=== PATIENT | male | born 1960 | race Caucasian/White ===

== ENCOUNTER 2021-10-24 09:15 | Observation (INO) ==
[~2021-10-24 09:15] MED LIST: Buffered Lidocaine 1% SYRIN 1 ml INTRADERM ONE; Lactated Ringers 1000 ml BAG 1,000 ML IV SCH
[2021-10-24] MEDS ORDERED: ceFAZolin 2 GM in NS PREMIX 2 GM/100 ML BAG IVPB ONE (09:58)
[2021-10-24] MEDS ORDERED: Midazolam 5 mg/5 ml VIAL 1 mg/ml 5 ml VIAL (5 mg) ONE (10:59)
[2021-10-24] MEDS ORDERED: ceFAZolin VIAL 1 GM in NS 0.9% 50 ML 50 ML IVPB ONE (11:00)
[2021-10-24] MEDS ORDERED: Ketamine HCL 50 mg/ml 10 ml VIAL (500 MG) ONE (11:33)
[2021-10-24] MEDS ORDERED: Phenylephrine 40 mcg/mL 10mL (400mcg) SYRINGE ONE (11:46)
[2021-10-24] MEDS ORDERED: diPHENhydraMINE IV 50 MG/ML 1 ml VIAL (BENADRYL) IV PRN (11:56)
[2021-10-24] MEDS ORDERED: Lactulose 30 ml UDC PO PRN (11:56)
[2021-10-24] MEDS ORDERED: Ondansetron 4 mg VIAL 2 MG/ML 2 ml VIAL IV PRN ×2 (11:56→12:26)
[2021-10-24] MEDS ORDERED: diPHENhydraMINE 25 mg TAB PO PRN (11:56)
[2021-10-24] MEDS ORDERED: Magnesium Hydroxide LIQ 30 ML UDC PO PRN (11:56)
[2021-10-24] MEDS ORDERED: Morphine 2 MG/ML SYRINGE IV PRN (12:02)
[2021-10-24] MEDS ORDERED: Naloxone 0.4 mg VIAL 0.4 mg/ml 1 ml VIAL IV PRN (12:26)
[2021-10-24] MEDS ORDERED: HYDROmorphone 1 MG/1 ML SYRINGE IV PRN (12:26)
[2021-10-24] MEDS ORDERED: Acetaminophen IV 1 GM/100ML 100 ML IV PRN (12:26)
[2021-10-24] MEDS ORDERED: DiMENhydriNATE IV 50 mg/ml 1 ml VIAL IV PUSH PRN (12:26)
[2021-10-24] MEDS ORDERED: ceFAZolin 1 GM ADVAN 1 GM in NS 0.9% 50 ML 50 ML IVPB SCH (13:00)
[2021-10-24] MEDS ORDERED: fentaNYL 100 mcg/2 ml 50 MCG/ML VIAL ONE ×2 (13:25→14:47)
[2021-10-24] MEDS ORDERED: CEFAZOLIN 3 GM IVPB (14:00)
[2021-10-24] MEDS ORDERED: X ONE IVPB (14:00)
[2021-10-24] MEDS: fentaNYL 100 mcg/2 ml 50 MCG/ML VIAL IV PRN ×2 (14:49→15:10)
[2021-10-24] MEDS: Lactated Ringers 1000 ml BAG 1,000 ML IV SCH (16:30)
[2021-10-24] MEDS: Magnesium Hydroxide LIQ 30 ML UDC PO SCH (20:43)
[2021-10-24] MEDS: ceFAZolin VIAL 1 GM in NS 0.9% 50 ML 50 ML IVPB SCH (20:43)
[2021-10-25] MEDS: Lactated Ringers 1000 ml BAG 1,000 ML IV SCH (01:58)
[2021-10-25] MEDS: Ondansetron ODT 4 mg TAB 4 MG TAB PO PRN ×2 (02:01→14:02)
[2021-10-25] MEDS: ceFAZolin VIAL 1 GM in NS 0.9% 50 ML 50 ML IVPB SCH ×2 (03:45→11:16)
[2021-10-25 06:43] LABS: Hematocrit 38 % (42-52); Hemoglobin 13.3 g/dL (14.0-18.0); Mean Platelet Volume 8.3 fL (7.4-10.4); Platelet Count 118 10^3/uL (150-450)
[2021-10-25 07:13] LABS: Calcium 8.6 mg/dL (8.6-10.3); Potassium 3.9 mmol/L (3.5-5.0)
[2021-10-25] MEDS ORDERED: amLODIPine/Benazepril 10/20(NF) CAP PO SCH (09:00)
[2021-10-25] MEDS: Magnesium Hydroxide LIQ 30 ML UDC PO SCH ×2 (09:01→21:17)
[2021-10-25] MEDS: Vitamin THERAPEUTIC TAB PO SCH (09:02)
[2021-10-26 06:43] LABS: Hematocrit 37 % (42-52); Hemoglobin 12.9 g/dL (14.0-18.0); Mean Platelet Volume 9.2 fL (7.4-10.4); Platelet Count 122 10^3/uL (150-450)
[2021-10-26] MEDS: Magnesium Hydroxide LIQ 30 ML UDC PO SCH (08:29)
[2021-10-26] MEDS: Vitamin THERAPEUTIC TAB PO SCH (08:30)
[2021-10-26 11:56] VITALS: BP 128/72
== END 2021-10-26 15:20 | disposition home or self-care (01) ==
LOC: AA → INTOOBSV 09:38 → OBSVTOIN 09:38 → AA 09:38 → SSU 11:56
PROVIDERS: ADMIT Orthopaedic Surgery Adult Reconstructive Orthopaedic Surgery; ATTEND Orthopaedic Surgery Adult Reconstructive Orthopaedic Surgery